=== PATIENT | female | born 1965 | race Caucasian/White ===

== ENCOUNTER → 2017-11-26 | Outpatient (CLI) | payer OTHER, BC ==
[2017-02-06 09:12] VITALS: BMI 35.3
[~2017-11-26] MED LIST: ACET-3017 PO; AZIT500T47 PO; CEPH500T7 PO; ESOM40CA42 PO; FAMO20TA28 PO; HYDR473S4 PO; IBUP-1671 PO; KET10 PO; NO ROUTINE MEDS; ONDA-2 PO; OXYB10TA21 PO; OXYC-865 PO; TRIA15CR40 TP
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
== END ==
LOC: RAD 10:02
PROVIDERS: ATTEND Family Medicine
DX: M25.532 Pain in left wrist (principal); V89.9XXA Person injured in unspecified vehicle accident, initial encounter

== ENCOUNTER → 2017-12-17 | Outpatient (CLI) | payer OTHER, BC ==
[2017-02-06 09:12] VITALS: BMI 35.3
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
== END ==
LOC: RAD 08:43
PROVIDERS: ATTEND Family Medicine
DX: M25.522 Pain in left elbow (principal); M79.641 Pain in right hand; M79.642 Pain in left hand; M25.572 Pain in left ankle and joints of left foot; M77.32 Calcaneal spur, left foot